=== PATIENT | male | born 2000 | race Two or more races ===

== ENCOUNTER 2020-08-15 23:06 | Emergency (ER) | payer OTHER ==
[~2020-08-15] VITALS: Ht 180.3 cm; Wt 106.0 kg
--- NOTE | 2020-08-15 23:46 | NUR ---
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
--- NOTE | 2020-08-15 23:55 | NUR ---
THIS IS A 19 YO M W/ C/O LT ANKLE PAIN S/P TRIPPING DOWN STEPS. CMS INTACT. PT RESTING ON WHEELCHAIR W/ CALL LIGHT IN REACH AND FAMILY AT BEDSIDE. RESP EVEN AND UNLABORED, NADN. SITA BORRERO AT BEDSIDE FOR ED EVAL.
[2020-08-16] MEDS ORDERED: IBUPROFEN 600 MG TABLET PO ONE
[2020-08-16] MEDS ORDERED: IBUPROFEN 600 MG TABLET ONE (00:24)
[2020-08-16 00:58] VITALS: BP 142/88
== END 2020-08-16 01:01 | disposition home or self-care (01) ==
LOC: ED 08-16 00:26
DX: S93.492A Sprain of other ligament of left ankle, initial encounter (principal); G89.11 Acute pain due to trauma; M79.672 Pain in left foot; W10.8XXA Fall (on) (from) other stairs and steps, initial encounter; Y93.89 Activity, other specified; Y92.098 Other place in other non-institutional residence as the place of occurrence of the external cause; Y99.8 Other external cause status
CPT/HCPCS: 99284

== ENCOUNTER 2021-05-13 05:53 | Emergency (ER) | payer OTHER ==
[~2021-05-13] VITALS: Ht 180.3 cm; Wt 116.8 kg
[2021-05-13 05:56] VITALS: BP 146/80
[2021-05-13] MEDS ORDERED: IBUPROFEN 600 MG TABLET PO ONE (06:30)
[2021-05-13] MEDS ORDERED: METHOCARBAMOL 750 MG TABLET PO ONE (06:30)
[2021-05-13] MEDS ORDERED: IBUPROFEN 600 MG TABLET ONE (07:19)
[2021-05-13] MEDS ORDERED: METHOCARBAMOL 750 MG TABLET ONE (07:19)
== END 2021-05-13 07:29 | disposition home or self-care (01) ==
LOC: ED 07:20
DX: G89.11 Acute pain due to trauma (principal); M25.552 Pain in left hip; X58.XXXA Exposure to other specified factors, initial encounter; Y93.89 Activity, other specified; Y92.69 Other specified industrial and construction area as the place of occurrence of the external cause; Y99.8 Other external cause status
CPT/HCPCS: 72190; 99283